=== PATIENT | female | born 1995 | race Caucasian/White ===

== ENCOUNTER 2017-03-25 08:15 | Emergency (ER) | payer OTHER ==
[2017-03-25 09:27] LABS: BILIRUBIN,URINE NEGATIVE (NEGATIVE); GLUCOSE, URINE (UA) NEGATIVE (NEGATIVE); KETONES,URINE (UA) NEGATIVE (NEGATIVE); LEUKOCYTE ESTERASE, URINE NEGATIVE (NEGATIVE); NITRITE,URINE POSITIVE (NEGATIVE); OCCULT BLOOD,URINE NEGATIVE (NEGATIVE); PROTEIN,URINE NEGATIVE (NEGATIVE); UROBILINOGEN,URINE 0.2 (NORMAL) E.U./dL (NORMAL)
[2017-03-25 09:31] LABS: CLARITY,URINE CLEAR (CLEAR)
[2017-03-25 09:32] LABS: HCG UR QUAL NEGATIVE
[2017-03-25 09:51] LABS: BACTERIA,URINE Many /HPF (None Seen); RBC,URINE 0-5 /HPF (0-5); SQUAMOUS EPITHELIAL CELL,UR MOD Squamous (<= Few)
[2017-03-25] MEDS ORDERED: PHENAZOPYRIDINE 100 MG TABLET PO STA (10:32)
[2017-03-25] MEDS ORDERED: NITROFURANTOIN MACRO 100 MG CAPSULE PO STA (10:32)
--- NOTE | 2017-03-25 11:46 | ED Physician Documentation ---
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 However she has had similar symptoms in the past and was diagnosed with chlamydia. After the initial diagnosis and treatment 3 months ago, she has tested positive for Chlamydia 2 more times, and has been treated both times. She has had no sexual partners since the initial diagnosis. In addition she reports dysuria, but denies frequency of urination. She denies fever or low back pain. She has had occasional vomiting. She is on Nexplanon, and has had no recent menstrual period. Review of Systems Constitutional: denies: Fever Nose: denies: Congestion Throat: denies: Sore throat Cardiac: denies: Chest pain / pressure Respiratory: denies: Dyspnea, Cough GI: reports: Abdominal Pain, Vomiting (occasional). denies: Diarrhea : reports: Dysuria, Control (Nexplanon). denies: Frequency Skin: denies: Rash Musculoskeletal: denies: Back pain Neurologic: denies: Headache PD PAST MEDICAL HISTORY - Past Medical History Cardiovascular: None Respiratory: None Neuro: None Endocrine/Autoimmune: None GI: None - Past Surgical History Past Surgical History: No - Present Medications Home Medications: Ambulatory Orders Medication Instructions Recorded Confirmed Etonogestrel [Nexplanon] 03/25/17 Metronidazole [Flagyl] 500 mg PO DAILY #14 tablet 03/25/17 Nitrofurantoin [Macrobid] 100 mg PO BID #10 capsule 03/25/17 Phenazopyridine HCl [Pyridium] 200 mg PO TID PRN #10 tablet 03/25/17 - Allergies Allergies/Adverse Reactions: Allergies Allergy/AdvReac Type Severity Reaction Status Date / Time No Known Drug Allergies Allergy Verified 03/25/17 08:32 - Social History Does the pt smoke?: No Smoking Status: Never smoker - Immunizations Immunizations are current?: Yes - POLST Patient has POLST: No PD ED PE NORMAL - Vitals Vital signs reviewed: Yes (normal) - General General: Alert and oriented X 3, Well developed/nourished - HEENT HEENT: Atraumatic, Pharynx benign - Neck Neck: No adenopathy - Cardiac Cardiac: RRR, No murmur - Respiratory Respiratory: No respiratory distress, Clear bilaterally - Abdomen Abdomen: Soft, Non tender - Back Back: No CVA TTP - Derm Derm: No rash - Extremities Extremities: No tenderness to palpate, No edema - Neuro Neuro: Alert and oriented X 3, No motor deficit, Normal speech PD ED PE EXPANDED - Female Female : Normal external, Vaginal Discharge, Cultures sent, 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 No: Vaginal Bleeding, Adnexal Mass, Adnexal Tenderness Results - Vitals Vitals: Oxygen O2 Source Room air - Labs Labs: Microbiology 03/25/17 11:05 Wet Prep - Final Cervix Laboratory Tests 03/25/17 03/25/17 03/25/17 09:04 09:18 11:05 Urine Color YELLOW Urine Clarity CLEAR Urine pH 6.0 Ur Specific [place] 1.015 1.015 Urine Protein NEGATIVE Urine Glucose (UA) NEGATIVE Urine Ketones NEGATIVE Urine Occult Blood NEGATIVE Urine Nitrite POSITIVE H Urine Bilirubin NEGATIVE Urine Urobilinogen 0.2 (NORMAL) Ur Leukocyte Esterase NEGATIVE Urine RBC 0-5 Urine WBC 11-25 H Ur Squamous Epith Cells MOD Squamous H Urine Bacteria Many H Ur Microscopic Review INDICATED Urine Culture Comments NOT INDICATED Urine HCG, Qual NEGATIVE C.trachomatis RNA (TMA) NOT DETECTED Chlamydia/GC Comment SEE NOTE N.gonorrhoeae RNA (TMA) NOT DETECTED PD MEDICAL DECISION MAKING - ED course Complexity details: reviewed results, re-evaluated patient, considered differential, d/w patient ED course: The patient's presentation is most consistent with urinary tract infection and bacterial vaginosis. Urine culture is pending. In addition cervical cultures for GC and chlamydia are pending. Her presentation does not suggest pyelonephritis or sepsis. Treatment in the emergency department included administration of nitrofurantoin 100 mg orally, and Pyridium 200 mg orally. She is being discharged with prescriptions for Macrobid, Pyridium, and for metronidazole. I discussed with her the expected course of illness, follow-up for culture results, antibiotic treatment and outpatient follow-up, as well as potentially worrisome signs or symptoms that should prompt reevaluation in the emergency department. Departure - Departure Disposition: 01 Home, Self Care Clinical Impression: Bacterial vaginosis UTI (urinary tract infection) Qualifiers: Urinary tract infection type: acute cystitis Hematuria presence: without hematuria Qualified Code(s): N30.00 - Acute cystitis without hematuria Instructions: ED UTI Cystitis Female, ED Vaginosis Bacterial Follow-Up: [facility] [Provider Group] Prescriptions: Metronidazole [Flagyl] 500 mg PO DAILY #14 tablet Nitrofurantoin [Macrobid] 100 mg PO BID #10 capsule Phenazopyridine HCl [Pyridium] 200 mg PO TID PRN #10 tablet PRN Reason: pain with urination Comments: Take Macrobid twice daily for 5 days as prescribed. You can use Pyridium if needed for painful urination. Take metronidazole twice daily for 7 days as prescribed. Eat probiotic yogurt while on antibiotic therapy. Follow up with your primary physician within 2 weeks. Call to schedule appointment. Return to the emergency department if you develop increasing abdominal pain, fever with shaking chills, persistent vomiting, or otherwise worsening symptoms. Discharge Date/Time: 03/25/17 13:02
[2017-03-25 13:02] VITALS: BP 130/70
== END 2017-03-25 13:02 | disposition home or self-care (01) ==
LOC: ED 08:15
DX: N76.0 Acute vaginitis (principal); B96.89 Other specified bacterial agents as the cause of diseases classified elsewhere; N30.00 Acute cystitis without hematuria
CPT/HCPCS: 81001; 81025; 87210; 87491; 87591; 99283; A9270; 81003; 87086